=== PATIENT | male | born 1965 | race Hispanic/Latino ===

== ENCOUNTER 2025-03-22 08:58 | Day surgery (SDC) | payer BC ==
[2025-03-21 17:08] VITALS: BP 111/53; PULSE 83; RESP 17; TEMP 97.5
[2025-03-22] VITALS (16 sets, daily range): BP systolic 97–114; BP diastolic 48–66; PULSE 61–80; RESP 14–18; TEMP 97.3
[~2025-03-22] VITALS: Ht 177.8 cm; Wt 96.0 kg
[~2025-03-22 08:58] MED LIST: ACET-2743 PO; ALLO300T2 PO; DAPA10TA PO; GABA300C PO; GLIP1TAB6 PO; MELO-108 PO; NAPR-1194 PO; OLME1TAB48 PO; SIMV-43 PO; TAMS-55 PO; TIRZ10PE SQ
[2025-03-22] MEDS ORDERED: 0.9%NACL 1000ML 1,000 ML IV ONE (09:09)
[2025-03-22] MEDS ORDERED: FAMOTIDINE 20MG VIAL IV ONE (10:05)
[2025-03-22] MEDS ORDERED: LIDOCAINE PF 100MG/5ML (2%) SYRINGE 5ML ONE (10:08)
[2025-03-22] MEDS ORDERED: MIDAZOLAM HCL 1 MG/ML 2ML VIAL ONE (10:09)
[2025-03-22] MEDS ORDERED: GLYCOPYRROLATE 0.2 MG/ML 5 ML VIAL ONE (11:17)
[2025-03-22] MEDS ORDERED: NEOSTIGMINE METHYLSULFATE 1MG/ML IV ONE (11:17)
[2025-03-22] MEDS ORDERED: ALBUMIN (HUMAN) 25% 50 ML IV ONE ×3 (11:39→11:58)
[2025-03-22] MEDS ORDERED: CYCL-309 PO (14:36)
[2025-03-22] MEDS ORDERED: HYDR-4060 PO (14:36)
--- NOTE | 2025-03-22 16:28 | OP ---
Operative Note: DATE OF PROCEDURE: 03/22/25 SURGEON: ASH AWAN MD OUTSIDE INSTALLATION MACHINIST: Nhung Rome ANESTHESIA: General and interscalene block ANESTHESIOLOGIST/STILL PUMP OPERATOR: PREOPERATIVE DIAGNOSIS: Left shoulder rotator cuff tear, subacromial impingement, acromioclavicular joint osteoarthritis POSTOPERATIVE DIAGNOSIS: Left shoulder rotator cuff tear, subacromial impingement, acromioclavicular joint osteoarthritis PROCEDURE: Left shoulder arthroscopic rotator cuff repair, subacromial decompression, distal clavicle excision, debridement of the long head of biceps ESTIMATED BLOOD LOSS: 30 cc FINDINGS: On insertion of the arthroscope into the joint we noted frayed portion of the long head of the biceps with significant diffuse hypertrophic synovium. With probing the biceps down into the joint we were able to visualize a sizable tear with the supraspinatus insertion site. We then debrided the frayed tissue off the long head of the biceps and cauterize some of the hype rtrophic synovium to prevent further bleeding or pain. After repositioning of the arthroscope in the subacromial region we performed our tear using two FiberTapes and two SwiveLock suture anchors. Distal clavicle excision was performed as was subacromial decompression. INDICATIONS: 59-year-old male with a history of left shoulder pain. They were failing conservative management and found on MRI to have large retracted tear supraspinatus. After discussion of the risk, benefits, and alternatives, the patient voluntarily agreed to undergo the aforementioned procedure. DESCRIPTION OF PROCEDURE: Patient was properly identified in the preoperative holding area. Surgical site marking was verified and surgery consent reviewed. The patient was then taken to the operating room and placed in supine position on the OR table. After induction of general anesthesia, preoperative antibiotics were given, all bony prominences were well-padded as the patient was transitioned into beachchair position. The left upper extremity was then prepped and draped in usual sterile fashion. Surgical timeout was done verifying correct surgery, side, site, and location to be performed. We then began the procedure by using an 18-gauge spinal needle to inject the shoulder joint with normal saline to distend the joint capsule. A posterior lateral portal was established using 11 blade and we inserted our arthroscope through this portal. We established an anterior portal using needle localization under direct visualization and placed a working cannula through this portal. We then performed a diagnostic arthroscopy with the aforementioned findings. We then evaluated the tear of the biceps near the rotator interval. We debrided the frayed tissue off of the biceps using the cautery device. We evaluated the rotator cuff tear. We then repositioned the arthroscope into the subacromial space. We performed our subacromial decompression removing bursal tissue but also lateral spurring of the acromion. This was required for us to have room to work. We then identified the rotator cuff tear . Using the [employer] suture passer device, we then passed two independent FiberTape through the rotator cuff in a horizontal mattress pattern. These were then secured to the humerus using 2 self tapping swivel lock anchors. We then inserted the keyon device and resected the lateral 8mm of the distal clavicle. We finished the subacromial decompression with the keyon to resect 2-3 mm of the under surface acromial bone. We then removed as much of the arthroscopic fluid as possible and removed the arthroscopic instruments and camera. We expressed some the remaining fluid from the surrounding soft tissues. 3-0 nylon was then used to close the skin portals. Sterile soft dressing was applied. Patient was then placed into a shoulder immobilizer, awakened from anesthesia, and taken the recovery room in stable condition. ASH AWAN MD Mar 22, 2025 16:28
== END 2025-03-22 15:42 | disposition home or self-care (01) ==
LOC: DAH 08:58
PROVIDERS: ATTEND Student in an Organized Health Care Education/Training Program
DX: M75.42 Impingement syndrome of left shoulder (principal); M75.122 Complete rotator cuff tear or rupture of left shoulder, not specified as traumatic; M19.012 Primary osteoarthritis, left shoulder; M25.812 Other specified joint disorders, left shoulder; M25.512 Pain in left shoulder; E11.9 Type 2 diabetes mellitus without complications; E78.00 Pure hypercholesterolemia, unspecified; N28.9 Disorder of kidney and ureter, unspecified; I10 Essential (primary) hypertension; Z98.890 Other specified postprocedural states; Z79.899 Other long term (current) drug therapy; Z82.49 Family history of ischemic heart disease and other diseases of the circulatory system; Z83.3 Family history of diabetes mellitus
CPT/HCPCS: 29827; 29826; 29824; 64415; 82948; C1713; A4663; J7030 ×2; J3490 ×4; J3010; J1100; J0169; J2003; J2250; J2704; J2405; P9047 ×3; J2710; J2795; J2371; J0690; A6223; A5120; A4215; A4223 ×2; A4213; A4222; A4221; A4216; A4600; A4450